=== PATIENT | female | born 1945 | race Caucasian/White ===

== ENCOUNTER → 2018-05-05 13:21 | Outpatient (CLI) | payer MEDICARE, SELFPAY ==
--- NOTE | 2018-05-05 | DI.RAD.S_ITS ---
PROCEDURE: XR CHEST 2V INDICATIONS: SHORTNESS OF BREATH TECHNIQUE: 2 views of the chest were acquired. COMPARISON: None. FINDINGS: Surgical changes and devices: None. Lungs and pleura: Diffuse bilateral and bibasilar reticular pulmonary opacities are noted. There is prominence of pulmonary vasculature. There is a 0.5 cm radiopaque nodule projecting over the lateral right upper lobe/posterolateral aspect of the right fifth rib. No pleural effusions or pneumothorax. Mediastinum: Mediastinal contours are normal. Heart size is normal. There is calcified plaque of the aorta. Bones and chest wall: No suspicious bony abnormalities. Soft tissues appear unremarkable. IMPRESSION: 1. Findings most consistent with mild pulmonary edema with bibasilar atelectasis. 2. 0.5 cm nodule projecting over the lateral right upper lobe/posterolateral aspect of the right fifth rib may represent a true pulmonary nodule, a calcified granuloma, a rib enostosis, or summation artifact. Correlation with prior outside imaging recommended if available. Consider followup chest radiographs to demonstrate stability/resolution and to exclude an underlying true pulmonary nodule. Dictated by: Akil Hurt M.D. on 05/06/2018 at 5:00 Approved by: Akil Hurt M.D. on 05/06/2018 at 5:04
[2018-05-05 14:34] LABS: Blood Urea Nitrogen 36 mg/dL (7-17); Calcium 11.8 mg/dL (8.4-10.2); Carbon Dioxide 29 mmol/L (22-32); Chloride 101 mmol/L (98-107); Estimated Glomerular Filt Rate 54.1 mL/min (>60); Glucose 160 mg/dL (80-110); HEMOLYSIS < 15 (0-50); Potassium 4.4 mmol/L (3.4-5.1); Sodium 140 mmol/L (137-145)
== END ==
PROVIDERS: PCP Family Medicine; Visit Provider Family Medicine
DX: R06.02 Shortness of breath (principal); R60.9 Edema, unspecified; R91.1 Solitary pulmonary nodule
CPT/HCPCS: 36415; 71046; 80048

== ENCOUNTER → 2019-01-02 12:02 | Outpatient (CLI) | payer MEDICARE, SELFPAY ==
--- NOTE | 2019-01-02 | DI.US.S_ITS ---
PROCEDURE: US ABDOMEN LIMITED INDICATIONS: RIGHT UPPER QUADRANT PAIN TECHNIQUE: Real-time focused scanning was performed of the abdomen, with image documentation. COMPARISON: [facility], US, ABDOMEN COMPLETE, 04/19/2016, 9:54. FINDINGS: The liver is normal in size and demonstrates no focal lesions. Numerous mobile gallstones are seen. The gallbladder wall is not thickened, measuring 3 mm or less. No specific pericholecystic fluid is seen. The sonographic Greene sign is negative. There is no biliary dilatation, the common bile duct measures 5 mm. Visualized pancreas is unremarkable. The right kidney demonstrates normal size. The right renal collecting system is prominent. No right-sided kidney stones can be seen on these images. IMPRESSION: Mobile gallstones are seen, without additional sonographic signs of cholecystitis. Likely right kidney extrarenal pelvis. Differential diagnosis includes a mild degree of hydronephrosis, however. Dictated by: Jourdan Dalal M.D. on 01/03/2019 at 10:12 Approved by: Jourdan Dalal M.D. on 01/03/2019 at 10:13
== END ==
PROVIDERS: PCP Family Medicine; Visit Provider Family Medicine
DX: R10.11 Right upper quadrant pain (principal); K80.20 Calculus of gallbladder without cholecystitis without obstruction
CPT/HCPCS: 76705

== ENCOUNTER → 2019-03-05 14:24 | Outpatient (CLI) | payer MEDICARE, SELFPAY ==
[2019-03-05 16:31] LABS: Estimated Glomerular Filt Rate > 60.0 mL/min (>60)
== END ==
PROVIDERS: PCP Family Medicine; Visit Provider Student in an Organized Health Care Education/Training Program
DX: E21.0 Primary hyperparathyroidism (principal)
CPT/HCPCS: 36415; 82565

== ENCOUNTER → 2019-05-08 13:33 | Outpatient (CLI) | payer MEDICARE, SELFPAY ==
--- NOTE | 2019-05-08 | DI.ECHO.S_ITS ---
[facility] +---------+ : : [address] : [place] : : : : [id number] : : : : Phone: [phone]+ Echocardiogram Report + + :Name: DARIEN PADILLA Study Date: 05/08/2019 Height: 65 in : :[facility] Weight: 186 lb : : Gender: Female BSA: 1.9 m2 : :: 1945 Age: 74 yrs BP: 109/70 mmHg: :Reason For Study: Heart failure : :Ordering Physician: : :Forest Harrington M.D. Performed By: Nicolette Page : + + Interpretation Summary Left ventricular systolic function is moderate to severely reduced with the ejection fraction estimated to be 30-35% with a severe dyssynchronous contraction pattern, consistent with a conduction abnormality, and moderate to severe global hypokinesis that may be slightly worse in the inferior wall. The left ventricle is moderate-severely dilated with an estimated left ventricular end diastolic volume of 212 ml. Diastolic parameters suggest a relaxation abnormality of the left ventricle, consistent with probable normal filling pressures. The right ventricle is normal in size and function. Pulmonary artery pressures cannot be estimated because of the lack of a measurable TR jet velocity but the IVC suggests a CVP of around 3 mmHg. Both atria are normal in size. There is no significant valvular heart disease. The ascending aorta is mildly enlarged. Procedure: A two-dimensional transthoracic echocardiogram with color flow and Doppler was performed. The study quality was technically difficult. There is no prior echocardiogram noted for this patient. A contrast injection of Definity was performed to improve assessment of LV function. The heart rate ranged between 56-81 bpm during the study. Left Ventricle: The left ventricle is moderate-severely dilated. The estimated left ventricular end diastolic volume is 212 ml. There is normal left ventricular wall thickness. Left ventricular systolic function is moderate to severely reduced. The ejection fraction is estimated to be 30-35%. There is a severe dyssynchronous contraction pattern, consistent with a conduction abnormality. There is moderate to severe global hypokinesis of the left ventricle. That may be slightly worse in the inferior wall. Diastolic parameters suggest a relaxation abnormality of the left ventricle, consistent with probable normal filling pressures. Right Ventricle: The right ventricle is normal in size and function. Atria: Both atria are normal in size. There is no Doppler evidence for an interatrial shunt. Mitral Valve: There is mild to moderate mitral annular calcification. The mitral valve leaflets appear mildly thickened, but open well. There is trace mitral regurgitation. Aortic Valve: The aortic valve is trileaflet. The aortic valve opens well. No aortic regurgitation is present. Tricuspid Valve: The tricuspid valve is normal in structure and function. There is a trace or physiologic amount of tricuspid regurgitation. Pulmonary artery pressures cannot be estimated because of the lack of a measurable TR jet velocity but the IVC suggests a CVP of around 3 mmHg. Pulmonic Valve: The pulmonic valve is not well seen, but is grossly normal. There is a trace or physiologic amount of pulmonic regurgitation. There is no significant valvular heart disease. Great Vessels: The aortic root is normal size. The ascending aorta is mildly enlarged. The pulmonary artery is not well visualized, but is probably normal size. The IVC is of normal diameter and collapses greater than 50% with a sniff. This suggests a low right atrial pressure of 3 mm Hg. Pericardium/ Pleura There is no pericardial effusion. There is no pleural effusion. MMode/2D Measurements & Calculations LVIDd: 4.9 cm LVOT diam: 2.1 cm LVIDs: 5.1 cm Ao root diam: 3.3 cm FS: -4.0 % asc Aorta Diam: 3.8 cm EPSS: 2.1 cm IVSd: 0.72 cm LVPWd: 0.65 cm LV neff. diameter/BSA (cm/m^2): 2.6 LV sys. diameter/BSA (cm/m^2): 2.7 LA A2 area: 22.5 cm2 RA long axis: 4.2 cm LA A4 area: 15.9 cm2 RA area: 13.2 cm2 LA length (vol): 4.7 cm RA vol: 35.3 ml LA vol: 64.1 ml RA : 18.4 ml/m2 LA vol index: 33.4 ml/m2 IVC diam: 1.9 cm RVD1 (basal): 3.4 cm Doppler Measurements & Calculations Ao V2 max: 130.9 cm/sec LVOT Max Nabor: 82.2 cm/sec Ao V2 mean: 95.1 cm/sec LV V1 max P.7 mmHg Ao max P.9 mmHg LV V1 VTI: 16.6 cm Ao mean P.1 mmHg PATY(I,D): 2.2 cm2 Ao V2 VTI: 27.4 cm PATY(V,D): 2.3 cm2 sev ratio: 0.61 PATY indexed to BSA (cm^2/m^2): 1.1 MV E max nabor: 82.3 cm/sec TR max nabor: 193.3 cm/sec MV A max nabor: 89.4 cm/sec TR max P.9 mmHg MV E/A: 0.92 PA V2 max: 76.7 cm/sec Med Peak E' Nabor: 4.8 cm/sec PA V2 mean: 51.0 cm/sec E/E' med: 17.0 PA mean P.2 mmHg Lat Peak E' Nabor: 7.7 cm/sec PA Accel Time: 0.09 sec E/E' lat: 10.7 E/e' average: 13.9 MV P1/2t: 75.8 msec MV P1/2t max nabor: 79.5 cm/sec SV(LVOT): 59.9 ml MVA(P1/2t): 2.9 cm2 Reading Physician:CASEY
== END ==
PROVIDERS: PCP Family Medicine; Referring Provider Internal Medicine Cardiovascular Disease; Visit Provider Internal Medicine Cardiovascular Disease
DX: I50.9 Heart failure, unspecified (principal); I77.89 Other specified disorders of arteries and arterioles
CPT/HCPCS: 93306; Q9957

== ENCOUNTER → 2020-06-29 11:43 | Outpatient (CLI) | payer MEDICARE, SELFPAY ==
[2020-06-29 21:19] LABS: COVID19 - ORCAS (NP or Nasal) Negative (Negative)
== END ==
PROVIDERS: PCP Family Medicine; Visit Provider Family Medicine
DX: Z20.822 Contact with and (suspected) exposure to COVID-19 (principal)
CPT/HCPCS: C9803; U0003

== ENCOUNTER → 2020-08-10 10:36 | Outpatient (CLI) | payer MEDICARE, SELFPAY ==
[2020-08-10 20:13] LABS: Hemoglobin A1C% w Est Avg Glu 7.5 % (4.0-6.0)
[2020-08-10 20:23] LABS: Alanine Aminotransferase 15 IU/L (<35); Albumin 3.1 g/dL (3.5-5.0); Albumin Globulin Ratio 1.3 (1.0-2.8); Alkaline Phosphatase 93 U/L (38-126); Aspartate Aminotransferase 17 IU/L (14-36); BUN Creatinine Ratio 22.9 (6-22); Bilirubin Total 0.3 mg/dL (0.2-1.3); Blood Urea Nitrogen 16 mg/dL (7-17); Calcium 11.1 mg/dL (8.4-10.2); Carbon Dioxide 31 mmol/L (22-32); Chloride 100 mmol/L (98-107); Estimated Glomerular Filt Rate > 60.0 mL/min (>60); Globulin 2.4 g/dL (1.7-4.1); Glucose 160 mg/dL (80-110); HEMOLYSIS < 15 (0-50); Potassium 4.3 mmol/L (3.4-5.1); Sodium 137 mmol/L (137-145); Total Protein 5.5 g/dL (6.3-8.2)
== END ==
PROVIDERS: PCP Family Medicine; Visit Provider Family Medicine
DX: E11.9 Type 2 diabetes mellitus without complications (principal); I10 Essential (primary) hypertension; I50.9 Heart failure, unspecified
CPT/HCPCS: 80053; 83036

== ENCOUNTER → 2020-08-17 12:53 | Outpatient (CLI) | payer MEDICARE, SELFPAY ==
[2020-08-17 20:16] LABS: Hematocrit 23.7 % (36-46); Mean Corpuscular HGB Conc 33.6 % (30-36); Mean Corpuscular Hemoglobin 33.8 PG (26-34); Mean Corpuscular Volume 100.5 fL (80-100); Platelet Count 176 X10^3/uL (150-400); Red Blood Cell Count 2.36 X10^6/uL (4.0-5.2); Red Cell Distribution Width 20.4 % (11.6-14.8); White Blood Cell Count 9.7 X10^3/uL (4.5-11.0)
== END ==
PROVIDERS: Internal Medicine; PCP Family Medicine; Referring Provider Family Medicine; Visit Provider Family Medicine
DX: I50.9 Heart failure, unspecified (principal)
CPT/HCPCS: 85027

== ENCOUNTER → 2021-09-10 06:59 | Outpatient (CLI) | payer MEDICARE, SELFPAY ==
[2021-09-10 18:59] LABS: COVID19 - ORCAS (NP or Nasal) Negative (Negative)
== END ==
PROVIDERS: PCP Family Medicine; Visit Provider Family Medicine
DX: Z20.822 Contact with and (suspected) exposure to COVID-19 (principal); Z01.812 Encounter for preprocedural laboratory examination
CPT/HCPCS: C9803; U0003

== ENCOUNTER 2022-10-11 18:58 | Emergency (ER) | payer MEDICARE, SELFPAY ==
[2022-10-11 19:04] VITALS: BP 144/63; PULSE 65; RESP 18; TEMP 36.6; O2SAT 97; BMI 37.2
--- NOTE | 2022-10-11 19:22 | DI.US.S_ITS ---
PROCEDURE: US PERIPH VENOUS LOW EXTREM RT INDICATIONS: SWELLING TECHNIQUE: Real-time imaging, as well as color and pulse Doppler interrogation, were performed of the lower extremity deep veins from the inguinal ligament to the popliteal fossa, with documentation of the visualized calf veins. COMPARISON: None. FINDINGS: The common femoral, femoral, popliteal, and the visualized calf veins are normally compressible, and free of intraluminal thrombus. Color and pulse Doppler demonstrate normal phasic intraluminal flow. There is normal augmentation response to distal compression maneuver. IMPRESSION: 1. No evidence of deep venous thrombosis in the right lower extremity. Dictated by: Sreekanth Zelaya M.D. on 10/11/2022 at 20:52 Approved by: Sreekanth Zelaya M.D. on 10/11/2022 at 20:53
[2022-10-11 21:41] VITALS: BP 172/72; PULSE 56; O2SAT 98
--- NOTE | 2022-10-11 21:55 | ED_ITS ---
HPI - Extremity Problem General Chief complaint: Extremity Problem,Nontraumatic Stated complaint: Poss blood clot Time Seen by Provider: 10/11/22 21:42 Source: patient Mode of arrival: Family Vehicle History of Present Illness HPI Narrative: Patient is a 77-year-old female who was sent to the emergency department for an ultrasound to evaluate for potential DVT. She was started have swelling in her right lower extremity is weak. She does have a history of blood clots. Is also Lasix. She was seen by her primary doctor today who stated that if she did not have a blood clot she may need to increase her dose of Lasix. She did take her Lasix this morning. She is no chest pain or shortness of breath. Related Data Home Medications Medication Instructions Recorded Confirmed Lactobacillus rhamnosus GG PO 07/15/20 08/06/20 cholecalciferol (vitamin D3) 125 125 mcg PO DAILY 07/15/20 08/06/20 mcg (5,000 unit) tablet coenzyme Q10 400 mg capsule 400 mg PO DAILY 07/15/20 08/06/20 digestive enzymes PO 07/15/20 08/06/20 metformin 500 mg tablet,extended 500 mg PO BID 07/15/20 08/06/20 release 24hr metoprolol succinate 25 mg 25 mg PO DAILY 07/15/20 08/06/20 tablet,extended release 24 hr multivitamin (Multiple Vitamins 1 tab PO DAILY 07/15/20 08/06/20 tablet) ondansetron PO 07/15/20 08/06/20 prochlorperazine maleate 10 mg 10 mg PO TID PRN 07/15/20 08/06/20 tablet sacubitril 24 mg-valsartan 26 mg 1 tab PO BID 08/27/20 08/27/20 tablet (Entresto) Previous Rx's Medication Instructions Recorded fluconazole 150 mg tablet 150 mg PO ONCE #4 tabs 08/06/20 (Diflucan) furosemide 20 mg tablet 20 mg PO DAILY #90 tabs 08/06/20 nystatin 100,000 unit/gram topical 1 applic topical TID #30 grams 08/06/20 cream blood sugar diagnostic (Blood #100 ea 08/20/20 Glucose Test strips) blood-glucose meter #1 ea 08/20/20 glipizide 2.5 mg tablet, extended 2.5 mg PO DAILY #90 tabs 03/30/21 release 24 hr pantoprazole 40 mg tablet,delayed 40 mg PO DAILY #90 tabs 03/30/21 release Allergies Allergy/AdvReac Type Severity Reaction Status Date / Time codeine Allergy Intermediate Nausea, Verified 10/11/22 19:04 vomiting Sulfa (Sulfonamide Allergy Mild Itching Verified 10/11/22 19:04 Antibiotics) Coffee Fruit Allergy Mild Uncoded 10/11/22 19:04 Review of Systems Constitutional Constitutional: Reports system reviewed and no additional complaints, except as documented Cardiovascular Cardiovascular: Reports system reviewed and no additional complaints, except as documented Respiratory Respiratory: Reports system reviewed and no additional complaints, except as documented Musculoskeletal Musculoskeletal: Reports system reviewed and no additional complaints, except as documented Integumentary/Breasts Skin/Breast: Reports system reviewed and no additional complaints, except as documented Neurologic Neurologic: Reports system reviewed and no additional complaints, except as documented Patient History Medical History Anemia Calculus of gallbladder without cholecystitis without obstruction Calculus of kidney CHF (congestive heart failure) 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, unspecified site History of colon cancer Hypertension IBS (irritable bowel syndrome) Parathyroid adenoma Type 2 diabetes mellitus without complications Vulvovaginitis Social History Smoking Status: Never smoker Smoking Status: Never smoker alcohol intake frequency: 0-2 drinks per day Substance Use Type: does not use Exam Initial Vital Signs Initial Vital Signs: Vital Signs Temperature 97.8 F 10/11/22 19:04 Pulse Rate 65 10/11/22 19:04 Respiratory Rate 18 10/11/22 19:04 Blood Pressure 144/63 H 10/11/22 19:04 Pulse Oximetry 97 10/11/22 19:04 Oxygen Delivery Method Room Air 10/11/22 19:04 Const General: cooperative, comfortable and No ill appearing HENMT Head: normal to inspection and normocephalic Skin General: no rashes or lesions noted Neuro General: patient alert, patient awake, patient oriented x3 and moves all extremities Extrem General: normal to inspection, capillary refill normal and edema Course Orders Ordered: ED Orders 10/11/22 19:22 US periph venous low extrem rt Stat Vital Signs Vital signs: Vital Signs - 8 hr 10/11/22 21:41 10/11/22 21:41 10/11/22 22:00 Pulse Rate 56 L 58 L Blood Pressure 172/72 H Pulse Oximetry 98 97 Oxygen Delivery Method Room Air Room Air 10/11/22 22:01 10/11/22 22:01 Pulse Rate 58 L Blood Pressure 130/60 Pulse Oximetry 98 Oxygen Delivery Method Room Air MDM - Extremity (Nontraumatic) Imaging Data US - DVT: Radiologist's Impression: PROCEDURE:? US PERIPH VENOUS LOW EXTREM RT ? INDICATIONS:? SWELLING ? TECHNIQUE:? Real-time imaging, as well as color and pulse Doppler interrogation, were performed of the lower extremity deep veins from the inguinal ligament to the popliteal fossa, with documentation of the visualized calf veins.? ? COMPARISON:? None. ? FINDINGS:? The common femoral, femoral, popliteal, and the visualized calf veins are normally compressible, and free of intraluminal thrombus.? Color and pulse Doppler demonstrate normal phasic intraluminal flow.? There is normal augmentation response to distal compression maneuver.? ? ? IMPRESSION:? ? 1. No evidence of deep venous thrombosis in the right lower extremity. [facility] Narrative Medical decision making narrative: Ultrasound negative. Physical exam is not consistent with cellulitis. She is no chest pain or shortness of breath. Will have her contact her primary doctor for follow-up to discuss potentially changing her Lasix. She was given return precautions. She expressed understanding and agreement. Discharge Plan Departure Patient Disposition: Home Clinical Impression: Edema of right lower extremity Instructions: DI for Peripheral Edema-Unilateral Activity Restrictions/Additional Instructions: Continue to take all of your medications as directed and contact your primary doctor tomorrow to discuss whether not he would like you to increase your Lasix. Try to keep your leg elevated. Return to the emergency department for new symptoms. Prescriptions: No Action (DME) blood-glucose meter Kit See Rx Instructions .ROUTE .MEDSUPPLY Qty: 1 0RF Rx Instructions: As directed (DME) Blood Glucose Test Strip See Rx Instructions .ROUTE .MEDSUPPLY Qty: 100 3RF Rx Instructions: test blood sugars once a day glipizide 2.5 mg tablet extended release 24 hr 2.5 mg PO DAILY Qty: 90 0RF Rx Instructions: Take with dinner pantoprazole 40 mg tablet,delayed release (DR/EC) 40 mg PO DAILY Qty: 90 2RF ondansetron PO metoprolol succinate 25 mg tablet extended release 24 hr 25 mg PO DAILY multivitamin [Multiple Vitamins] Tablet 1 tab PO DAILY prochlorperazine maleate 10 mg tablet 10 mg PO TID PRN digestive enzymes PO coenzyme Q10 400 mg capsule 400 mg PO DAILY cholecalciferol (vitamin D3) 125 mcg (5,000 unit) tablet 125 mcg PO DAILY metformin 500 mg tablet extended release 24hr 500 mg PO BID Lactobacillus rhamnosus GG PO furosemide 20 mg tablet 20 mg PO DAILY Qty: 90 1RF nystatin 100,000 unit/gram cream 1 applic topical TID Qty: 30 1RF fluconazole [Diflucan] 150 mg tablet 150 mg PO ONCE Qty: 4 1RF Rx Instructions: Repeat in 1 week Entresto 24-26 mg tablet 1 tab PO BID Stand Alone Forms: Patient Portal/API
[2022-10-11 22:00] VITALS: PULSE 58; O2SAT 97
[2022-10-11 22:01] VITALS: BP 130/60; PULSE 58; O2SAT 98
== END 2022-10-11 22:20 | disposition home or self-care (01) ==
PROVIDERS: Emergency Provider Emergency Medicine
DX: R60.0 Localized edema (principal); Z79.01 Long term (current) use of anticoagulants
CPT/HCPCS: 93971; 99283

== ENCOUNTER → 2023-04-11 10:47 | Outpatient (CLI) | payer MEDICARE, SELFPAY ==
[2023-04-11 19:32] LABS: Add Manual Diff / Slide Review NO; Basophils Absolute Auto 0 /uL (0-100); Basophils Percent Auto 0.5 % (0-2); Eosinophils Absolute Auto 100 /uL (0-450); Eosinophils Percent Auto 1.8 % (2-4); Hematocrit 39.5 % (36-46); Hemoglobin 13.2 g/dL (12.0-16.0); Lymphocytes Absolute Auto 1600 /uL (1100-4500); Lymphocytes Percent Auto 26.6 % (25-40); Mean Corpuscular HGB Conc 33.4 % (30-36); Mean Corpuscular Hemoglobin 30.3 PG (26-34); Mean Corpuscular Volume 90.7 fL (80-100); Monocytes Absolute Auto 400 /uL (0-900); Monocytes Percent Auto 6.7 % (3-14); Neutrophils Absolute Auto 3800 /uL (1500-7000); Neutrophils Percent Auto 64.4 % (50-75); Platelet Count 195 X10^3/uL (150-400); Red Blood Cell Count 4.36 X10^6/uL (4.0-5.2); Red Cell Distribution Width 14.8 % (11.6-14.8); White Blood Cell Count 5.8 X10^3/uL (4.5-11.0)
[2023-04-11 19:48] LABS: Alanine Aminotransferase 32 IU/L (<35); Albumin 3.9 g/dL (3.5-5.0); Albumin Globulin Ratio 1.2 (1.0-2.8); Alkaline Phosphatase 115 U/L (38-126); Aspartate Aminotransferase 33 IU/L (14-36); BUN Creatinine Ratio 28.1 (6-22); Blood Urea Nitrogen 27 mg/dL (7-17); Calcium 9.4 mg/dL (8.4-10.2); Carbon Dioxide 29 mmol/L (22-32); Chloride 99 mmol/L (98-107); Estimated Glomerular Filt Rate 60 mL/min (>60); Globulin 3.3 g/dL (1.7-4.1); Glucose 157 mg/dL (80-110); HEMOLYSIS < 15 (0-50); Lactate Dehydrogenase 146 U/L (120-246); Potassium 4.1 mmol/L (3.4-5.1); Sodium 137 mmol/L (137-145); Total Protein 7.2 g/dL (6.3-8.2)
== END ==
PROVIDERS: PCP Internal Medicine; Visit Provider Internal Medicine
DX: C83.33 Diffuse large B-cell lymphoma, intra-abdominal lymph nodes (principal)
CPT/HCPCS: 80053; 83615; 85025

== ENCOUNTER → 2023-08-02 08:44 | Outpatient (CLI) | payer MEDICARE, SELFPAY ==
[2023-08-02 10:22] LABS: Add Manual Diff / Slide Review NO; Basophils Absolute Auto 0 /uL (0-100); Basophils Percent Auto 0.4 % (0-2); Eosinophils Absolute Auto 100 /uL (0-450); Eosinophils Percent Auto 1.7 % (2-4); Hematocrit 39.8 % (36-46); Hemoglobin 13.4 g/dL (12.0-16.0); Lymphocytes Absolute Auto 2100 /uL (1100-4500); Lymphocytes Percent Auto 26.8 % (25-40); Mean Corpuscular HGB Conc 33.7 % (30-36); Mean Corpuscular Hemoglobin 31.9 PG (26-34); Mean Corpuscular Volume 94.8 fL (80-100); Monocytes Absolute Auto 500 /uL (0-900); Monocytes Percent Auto 6.2 % (3-14); Neutrophils Absolute Auto 5100 /uL (1500-7000); Neutrophils Percent Auto 64.9 % (50-75); Platelet Count 192 X10^3/uL (150-400); Red Cell Distribution Width 13.5 % (11.6-14.8); White Blood Cell Count 7.9 X10^3/uL (4.5-11.0)
[2023-08-02 10:47] LABS: Alanine Aminotransferase 25 IU/L (<35); Albumin 4.3 g/dL (3.5-5.0); Albumin Globulin Ratio 1.4 (1.0-2.8); Alkaline Phosphatase 104 U/L (38-126); Aspartate Aminotransferase 30 IU/L (14-36); BUN Creatinine Ratio 34.1 (6-22); Bilirubin Total 0.7 mg/dL (0.2-1.3); Blood Urea Nitrogen 29 mg/dL (7-17); Calcium 9.4 mg/dL (8.4-10.2); Carbon Dioxide 29 mmol/L (22-32); Chloride 104 mmol/L (98-107); Estimated Glomerular Filt Rate > 60 mL/min (>60); Glucose 146 mg/dL (80-110); HEMOLYSIS 20 (0-50); Potassium 5.2 mmol/L (3.4-5.1); Sodium 138 mmol/L (137-145); Total Protein 7.3 g/dL (6.3-8.2)
[2023-08-02 10:53] LABS: NT-proBNP (BNP-Adult 18+) 409 pg/mL (<450)
[2023-08-02 11:06] LABS: Free T3, Triiodothyronine Free 3.63 pg/mL (2.77-5.27); Free T4, Direct Thyroxine 0.91 ng/dL (0.78-2.19)
[2023-08-02 11:20] LABS: Thyroid Stimulating Hormone 5.84 uIU/mL (0.47-4.68)
== END ==
PROVIDERS: PCP Family Medicine; Referring Provider Family Medicine; Visit Provider Family Medicine
DX: E03.9 Hypothyroidism, unspecified (principal); I42.9 Cardiomyopathy, unspecified
CPT/HCPCS: 36415; 80053; 83880; 84439; 84443; 84481; 85025